=== PATIENT | male | born 1990 | race Caucasian/White ===

== ENCOUNTER 2025-02-26 18:21 | Emergency (ER) | payer OTHER, SELFPAY ==
--- NOTE | ~2025-02-26 | CT_ITS ---
EXAMINATION: CT abdomen pelvis w con DATE: 02/26/2025 19:57 INDICATION: FRONTAL pelvic pain and scrotal pain X 1 DAY. TECHNIQUE: Computed tomography (CT) of the abdomen and pelvis was performed with 100 mL Omnipaque-350 intravenous contrast. Automated exposure control and iterative reconstruction technique were employe d. The dose-length product was 385.44 mGy-cm. COMPARISON: None. FINDINGS: Lower thorax: Bibasilar scar/atelectasis. Liver: Enlarged. Biliary/Gallbladder: Gallbladder is normal. No bile duct dilation. Pancreas: No mass or duct dilation. Spleen: Normal. Adrenals:No mass. Kidneys: No suspicious mass, obstructing stone, or hydronephrosis. Subcentimeter bilateral renal hypo densities, too small to characterize but most likely represent cysts. GI tract: Small hiatal hernia. Mild distal esophageal and gastric wall edema. No small or large bowel dilation. Normal appendix. Mesentery/Peritoneum: No ascites, mass, or free air. Left inferior intra-abdominal and left inguinal region peritoneal thickening/scarring versus hernia mesh. Retroperitoneum: No mass. Pelvis: Partial obscuration from metal artifact. Partially distended urinary bladder with mild wall t hickening. Prominent bilateral seminal vesicles. Mildly enlarged, diffusely enhancing prostate. Soft Tissues: Small uncomplicated appearing fat-containing umbilical hernia. Subcutaneous thickening and stranding over the midline abdomen/suprapubic soft tissues, likely surgical incision. Bones: No acute osseous finding. Uncomplicated appearing screw and plate fixation of the pubic symph ysis and right iliac bone. Uncomplicated appearing screw fixation of the right sacrum. IMPRESSION: Hepatomegaly. Mild esophagitis/gastritis. Bladder wall thickening may be secondary to cystitis or incomplete distention. Enlarged diffusely enhancing prostate. Prominent bilateral seminal vesicles. Correlate for clinical f indings of prostatitis/seminal vesiculitis. Midline lower anterior abdominal wall and suprapubic soft tissue thickening and left anterior/inguina l peritoneal thickening, in the absence of signs of infection these findings likely represent normal postsurgical change and possible hernia mesh. Correlate with surgical history. Reviewed, dictated and finalized at location [facility]. IMPRESSION: Hepatomegaly. Mild esophagitis/gastritis. Bladder wall thickening may be secondary to cystitis or incomplete distention. Enlarged diffusely enhancing prostate. Prominent bilateral seminal vesicles. Co rrelate for clinical findings of prostatitis/seminal vesiculitis. Midline lower anterior abdominal wall and suprapubic soft tissue thickening and left anterior/inguinal peritoneal thickening, in the absence of signs of infec tion these findings likely represent normal postsurgical change and possible he rnia mesh. Correlate with surgical history.
[2025-02-26 18:22] VITALS: BP 121/74; PULSE 85; RESP 16; TEMP 36.8; O2SAT 94
--- OUTSIDE RECORDS SUMMARY | 2025-02-26 18:23 | XMS_ITS | Clinical Summary ---
Author Organization [facility] Address [facility] [place] [address] Care Team Providers Care Investment Advisor Name Role Phone Brad Squires MD Primary Care Provider [phone] Allergies No known active allergies Medications WHEELCHAIR STANDARD/MANUAL, DME,Indications: Pelvic fracture (CMS/HCC HHS/HCC),Closed left ankle fracture,Traumat ic separation of pubic symphysis,Closed fracture of distal end of right tibia, unspecified fracture morphology, initial encounter,Closed fracture of base of fifth metatarsal bone of right foot at metaphyseal-diap hyseal junction, initial encounter 1 Device by Does not apply route daily. 1 Device 4 Active Misc. Devices (TRANSFER BOARD) MiscIndications: Pelvic fracture (CMS/HCC HHS/HCC),Closed left ankle fracture,Traumat ic separation of pubic symphysis,Closed fracture of distal end of right tibia, unspecified fracture morphology, initial encounter,Closed fracture of base of fifth metatarsal bone of right foot at metaphyseal-diap hyseal junction, initial encounter 1 Units by Does not apply route daily. Slide Board 1 each 4 Active COMMODE, DME,Indications: Pelvic fracture (CMS/HCC HHS/HCC),Closed left ankle fracture,Traumat ic separation of pubic symphysis,Closed fracture of distal end of right tibia, unspecified fracture morphology, initial encounter,Closed fracture of base of fifth metatarsal bone of right foot at metaphyseal-diap hyseal junction, initial encounter 1 Device by Does not apply route as needed. 1 Device 4 Active HOSPITAL BED, DME,Indications: Pelvic fracture (CMS/HCC HHS/HCC),Traumat ic separation of pubic symphysis,Closed displaced fracture of right ilium, unspecified fracture morphology, initial encounter ([facility]) 1 Device by Does not apply route nightly at bedtime. 1 Device 4 Active oxyCODONE immediate release (ROXICODONE) 5 MG immediate release tabletIndication s:Acute Pain < 7 Day Supply Take 1 tablet (5 mg total) by mouth every 6 (six) hours as needed for Pain. Indications: Acute Pain < 7 Day Supply 20 tablet 4 Active traMADol (ULTRAM) 50 MG tabletIndication s:Acute Pain < 3 Day Supply Take 1 tablet (50 mg total) by mouth every 6 (six) hours as needed for Pain. Indications: Acute Pain < 3 Day Supply 5 tablet 4 Active gabapentin (NEURONTIN) 300 MG capsuleIndicatio ns:Neuropathic Pain Take 300 mg by mouth 3 (three) times daily. Indications: Neuropathic Pain 4 Active tiZANidine (ZANAFLEX) 4 MG tabletIndication s:Muscle Spasm Take 2 mg by mouth every 8 (eight) hours as needed (muscle spasm). Indications: Muscle Spasm 4 Active HYDROcodone-acet aminophen (NORCO) 5-325 MG tabletIndication s:Acute Pain < 7 Day Supply Take 1 tablet by mouth every 8 (eight) hours as needed for Pain. Indications: Acute Pain < 7 Day Supply 4 Active Active Problems Problem Noted Date Diagnosed Date Haemophilus influenzae pneumonia 11/29/2023 Closed fracture of right distal tibia 11/26/2023 Closed fracture of base of f ifth metatarsal bone of right foot at metaphyseal-diaphyseal junction 11/26/2023 Smoker 11/24/2023 Injury resulting from fall from height 4 Open left ankle fracture 11/20/2023 Traumatic separation of pubic symphysis 11/20/19 24 Closed displaced fracture of right ilium (CMS/ [facility]) 11/20/2023 Bladder injury 11/20/2023 Fracture of unspecified meta tarsal bone(s), left foot, initial encounter for closed fracture 11/20/2023 Resolved Problems Problem Noted Date Diagnosed Date Resolved Date HAP (hospital-acquired pneumonia) 11/26/2023 11/29/2023 Acute atelectasis 11/24/2023 11/29/2023 Hypocalcemia 11/21/2023 11/24/2023 Elevated CK 11/20/2023 11/26/2023 Bleeding from urethra in male 11/20/2023 11/20/2023 Injury of male urethra 11/20/202311/19 Social History Tobacco Use Types Packs/Day Years Used Date Smoking Tobacco: Every Day Cigarettes Tobacco Cessation:Ready to Q uit: Not Asked; Counseling Given: Not Answered OASIS D0700: Social Isolation Answer Da te Recorded Frequency of experiencing loneliness or isolatio n Sometimes 01/14/2024 OASIS A1250: Transportation Answer Date Recorded Lack of Transportation (Medical) No 01/14/2024 Lack of Transportation (Non-Medical) No 01/14/2024 Patient Unable or Declines to Respond No 01/14/2024 OASIS B1300: Health Literacy Answer Otoniel e Recorded Frequency of needing help to read materials from doctor or pharmacy Never 01/14/2024 [facility] Utilities Answer Date Recorded In the past 12 months has e Tugg, oil, or water [employer] threatened to shut off services in your home? No 11/20/2023 Humiliation, Afraid, Rape, and Kick questionnair e Answer Date Recorded Within the last year, have y ou been afraid of your partner or ex-partner? No 11/20/2023 Within the last year, have y ou been humiliated or emotionally abused in other ways by your partner or ex-partner? No Within the last year, have y ou been kicked, hit, slapped, or otherwise physically hurt by your partner or ex-partner? No 11/20/2023 Within the last year, have y ou been raped or forced to have any kind of sexual activity by your partner or ex-partner? No 11/20/2023 Overall Financial Resource Strain (CARDIA) Answe r Date Recorded How hard is it for you to pa y for the very basics like food, housing, medical care, and heating? Not hard at all 11/20/2023 Hunger Vital Sign Answer Date Recorded Within the past 12 months, y ou worried that your food would run out before you got the money to buy more. Never true 11/20/19 24 Within the past 12 months, t he food you bought just didn't last and you didn't have money to get more. Never true 11/20/2023 PRAPARE - Transportation Answer Date Re corded In the past 12 months, has l ack of transportation kept you from medical appointments or from getting medications? No 03/2024 In the past 12 months, has l ack of transportation kept you from meetings, work, or from getting things needed for daily living? No 11/20/2023 Housing Stability Vital Sign Answer Otoniel e Recorded In the last 12 months, was t here a time when you were not able to pay the mortgage or rent on time? No 11/20/2023 In the past 12 months, how m any times have you moved where you were living? 0 11/20/2023 At any time in the past [address] [facility], were you homeless or living in a half-way (including now)? 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 [employer] Gender Identity Not on file Sexual Orientation Not on file Last Filed Vital Signs Vital Sign Reading Time Taken Comments Blood Pressure 110/70 01/01/2024 3:31 PM CDT Pulse 64 01/01/2024 3:31 PM CDT Temperature 35.9 C (96.6 F) 01/01/2024 3:31 PM CDT Respiratory Rate 16 01/01/2024 3:31 PM CDT Oxygen Saturation 98% 01/01/2024 3:31 PM CDT room air Inhaled Oxygen Concentration - - Weight 76.2 kg (167 lb 15.9 oz) 11/25/2023 4:24 AM CDT Height 188 cm (6' 2) 11/20/2023 9:41 AM CDT Body Mass Index 21.57 11/20/2023 9:41 AM CDT Plan of Treatment Health Maintenance Due Date Last Done Comments Annual Physical 1992 Hepatitis C 11/15/2007 Hepatitis B Vaccines (1 of 3 - 19+ 3-dose series) 2008 Pneumococcal Vaccine: Pediatrics (0 to 5 Years) and At-Risk Patients (6 to 49 Years) (1 of 2 - PCV) 2008 HPV Vaccines (1 - 3-dose SCD M series) 2016 COVID-19 Vaccine (1 - 2023-2 5 season) 2024 DTaP, Tdap and Td Vaccines ( 3 - Td or Tdap) 01/21/2028 01/20/2018, 02/13/2004 Meningococcal B Vaccine Aged Out No l onger eligible based on patient's age to complete this topic Meningococcal Vaccine Aged Out No joanna brien eligible based on patient's age to complete this topic RSV Immunizations Under 20 Months Aged Out No longer eligible b ased on patient's age to complete this topic Goals Goal Patient Goal Type Associated Problems Recent Progress Patient-Stated? Author Safety Patient/family will have appropriate support at home upon discharge Lifestyle No Nicky Head RN Medical Devices Implanted Type Area Process Improvement Specialist Device Identifier Shelf Expiration Date Model / Serial / Lot Graft Bone Allosource Canc Crushed Fd 5ml - [id number] Implanted:Qty: 1 on 11/28/2023 by Joshua Gutierrez MD at [facility] Bone Left: Ankle [employer] 12/15/2027 [id number] / [id number] / NA Plate Pubic Symphysis 3.5mm 6 Hole - [id number] Implanted:Qty: 1 on 11/21/2023 by Joshua Gutierrez MD at [facility] Plate Right: Iliac Crest SYNTHES 02.100.006 / / Plate Synthes 3.5 Low Profile Recon 7h 91mm - [id number] Implanted:Qty: 1 on 11/21/2023 by Joshua Gutierrez MD at [facility] Plate Right: Iliac Crest SYNTHES 245.027 / / Plate Synthes 3.5 Low Profile Recon 5h 65mm - [id number] Implanted:Qty: 1 on 11/21/2023 by Joshua Gutierrez MD at [facility] Plate Right: Iliac Crest SYNTHES 245.025 / / Plate Synthes One-Third Tubular Lcp W/Collar 5 Hole - [id number] Implanted:Qty: 1 on 11/28/2023 by Joshua Gutierrez MD at [facility] Plate Left: Ankle SYNTHES 241.351 / / NA Screw Synthes 3.5 Cortex Stardrive 45mm - [id number] Implanted:Qty: 1 on 11/21/2023 by Joshua Gutierrez MD at [facility] Screw Right: Iliac Crest SYNTHES 02.200.045 / / Screw Synthes 3.5 Cortex Stardrive 55mm - [id number] Implanted:Qty: 1 on 11/21/2023 by Joshua uGtierrez MD at [facility] Screw Right: Iliac Crest SYNTHES 02.200.055 / / Screw Synthes 3.5 Cortex Stardrive 26mm - [id number] Implanted:Qty: 1 on 11/21/2023 by Joshua Gutierrez MD at [facility] Screw Right: Iliac Crest SYNTHES 02.200.026 / / Screw Synthes 3.5 Cortex Stardrive 28mm - [id number] Implanted:Qty: 1 on 11/21/2023 by Joshua Gutierrez MD at [facility] Screw Right: Iliac Crest SYNTHES 02.200.028 / / Screw Synthes 3.5 Cortex Stardrive 50mm - [id number] Implanted:Qty: 1 on 11/21/2023 by Joshua Gutierrez MD at [facility] Screw Right: Iliac Crest SYNTHES 02.200.050 / / Screw Synthes 5.0mm Cannulated Locking 60mm - [id number] Implanted:Qty: 1 on 11/21/2023 by Joshua Gutierrez MD at [facility] Screw Right: Iliac Crest SYNTHES 02.200.060 / / Screw Synthes 3.5 Cortex Stardrive 40mm - [id number] Implanted:Qty: 1 on 11/21/2023 by Joshua Gutierrez MD at [facility] Screw Right: Iliac Crest SYNTHES 02.200.040 / / Screw Synthes 3.5 Cortex Stardrive 36mm - [id number] Implanted:Qty: 1 on 11/21/2023 by Joshua Gutierrez MD at [facility] Screw Right: Iliac Crest SYNTHES 02.200.036 / / Screw Synthes 3.5 Cortex Stardrive 34mm - [id number] Implanted:Qty: 1 on 11/21/2023 by Joshua Gutierrez MD at [facility] Screw Right: Iliac Crest SYNTHES 02.200.034 / / Screw Synthes 3.5 Cortex Stardrive 85mm - [id number] Implanted:Qty: 1 on 11/21/2023 by Joshua Gutierrez MD at [facility] Screw Right: Iliac Crest SYNTHES 02.200.085 / / Screw Synthes 3.5 Cortex Stardrive 30mm - [id number] Implanted:Qty: 1 on 11/21/2023 by Joshua Gutierrez MD at [facility] Screw Right: Iliac Crest SYNTHES 02.200.030 / / Screw Synthes 3.5 Cortex Stardrive 24mm - [id number] Implanted:Qty: 1 on 11/21/2023 by Joshua Gutierrez MD at [facility] Screw Right: Iliac Crest SYNTHES 02.200.024 / / Screw Synthes 3.5 Cortex Stardrive 18mm - [id number] Implanted:Qty: 1 on 11/21/2023 by Joshua Gutierrez MD at [facility] Screw Right: Iliac Crest SYNTHES 02.200.018 / / Screw Synthes 3.5 Cortex Stardrive 16mm - [id number] Implanted:Qty: 2 on 11/21/2023 by Joshua Gutierrez MD at [facility] Screw Right: Iliac Crest SYNTHES 02.200.016 / / Screw Synthes 6.5 Kacie Self Tap 16mm Pt 85 - [id number] Implanted:Qty: 1 on 11/21/2023 by Joshua Gutierrez MD at [facility] Screw Right: Iliac Crest SYNTHES 208.412 / / Screw Schanz Synthes 6.0 X 190 - [id number] Implanted:Qty: 1 on 11/21/2023 by Joshua Gutierrez MD at [facility] Screw Right: Iliac Crest SYNTHES 294.68 / / Screw Synthes 3.5 Cortex S/Tap 16mm - [id number] Implanted:Qty: 1 on 11/28/2023 by Joshua Gutierrez MD at [facility] Screw Left: Ankle SYNTHES 204.816 / / NA Screw Synthes 3.5 Cortex S/Tap 18mm - [id number] Implanted:Qty: 1 on 11/28/2023 by Joshua Gutierrez MD at [facility] Screw Left: Ankle SYNTHES 204.818 / / NA Screw Synthes 2.7 Cortical Self Tapping 55 - [id number] Implanted:Qty: 1 on 11/28/2023 by Joshua Gutierrez MD at [facility] Screw Left: Ankle SYNTHES 202.855 / / NA Screw Synthes 3.5 Locking Stardrive 16mm - [id number] Implanted:Qty: 1 on 11/28/2023 by Joshua Gutierrez MD at [facility] Screw Left: Ankle SYNTHES 212.104 / / NA Screw Synthes 3.5 Locking Stardrive 18mm - [id number] Implanted:Qty: 1 on 11/28/2023 by Joshua Gutierrez MD at [facility] Screw Left: Ankle SYNTHES 212.105 / / NA Screw Synthes 3.5 Cortex S/Tap 36mm - [id number] Implanted:Qty: 1 on 11/28/2023 by Joshua Gutierrez MD at [facility] Screw Left: Ankle SYNTHES 204.836 / / NA Screw Synthes 2.7 Cortical Self Tapping 45 - [id number] Implanted:Qty: 1 on 11/28/2023 by Joshua Gutierrez MD at [facility] Screw Left: Ankle SYNTHES 202.845 / / NA Screw Synthes 3.5 Cortex S/Tap 30mm - [id number] Implanted:Qty: 1 on 11/28/2023 by Joshua Gutierrez MD at [facility] Screw Left: Ankle SYNTHES 204.830 / / NA Screw Synthes 2.7 Cortical Self Tapping 45 - [id number] Implanted:Qty: 1 on 11/28/2023 by Joshua Gutierrez MD at [facility] Screw Left: Ankle SYNTHES 202.845 / / NA Washer Synthes 13.0mm - [id number] Implanted:Qty: 1 on 11/21/2023 by Joshua Gutierrez MD at [facility] Washer Right: Iliac Crest SYNTHES 219.99 / / 7 Hole 1/3 Tubular Plate Implanted:Qty: 1 on 11/28/2023 by Joshua Gutierrez MD at [facility] Left: Ankle SYNTHES 241.371 / / NA Explanted Type Area Process Improvement Specialist Device Identifier Shelf Expiration Date Model / Serial / Lot Drill Bit Synthes 5.0 Qc 300mm - [id number] Explanted:Qty: 1 on 11/21/2023 by Joshua Gutierrez MD at [facility] Drill Right: Iliac Crest SYNTHES 310.63 / / Drill Bit Synthes 2.5 Three-Fluted Qc 230 X 200mm - [id number] Explanted:Qty: 1 on 11/21/2023 by Joshua Gutierrez MD at [facility] Drill Right: Iliac Crest SYNTHES 315.92 / / Drill Bit Perc. Calib Synthes - [id number] Explanted:Qty: 1 on 11/21/2023 by Joshua Gutierrez MD at [facility] Drill Right: Iliac Crest SYNTHES 324.210 / / Drill Bit Synthes 2.5 Qc 110mm Gold - [id number] Explanted:Qty: 1 on 11/28/2023 by Joshua Gutierrez MD at [facility] Drill Left: Ankle [employer] 310.25 / / NA Drill Bit Synthes 2.0 Qc 125mm - [id number] Explanted:Qty: 1 on 11/28/2023 by Joshua Gutierrez MD at [facility] Drill Left: Ankle [employer] 310.21 / / NA Drill Bit Synthes 2.8 Qc 165mm - [id number] Explanted:Qty: 1 on 11/28/2023 by Joshua Gutierrez MD at [facility] Drill Left: Ankle SYNTHES 310.288 / / NA Drill Bit Synthes 2.7mm Three Fluted - [id number] Explanted:Qty: 1 on 11/28/2023 by Joshua Gutierrez MD at [facility] Drill Left: Ankle SYNTHES 315.28 / / NA Drill Bit Synthes 3.5 Qc 110mm - [id number] Explanted:Qty: 1 on 11/28/2023 by Joshua Gutierrez MD at [facility] Drill Left: Ankle SYNTHES 310.35 / / NA Screw Synthes 6.5 Kacie Self Tap 32mm Pt 150 - [id number] Explanted:Qty: 1 on 11/21/2023 by Joshua Gutierrez MD at [facility] Screw Right: Iliac Crest SYNTHES 208.452 / / Screw Synthes 6.5 Kacie Self Tap 32mm Pt 145 - [id number] Explanted:Qty: 1 on 11/21/2023 by Joshua Gutierrez MD at [facility] Screw Right: Iliac Crest SYNTHES 208.451 / / Screw Synthes 3.5 Cortex S/Tap 18mm - [id number] Explanted:Qty: 1 on 11/28/2023 by Joshua Gutierrez MD at [facility] Screw Left: Ankle SYNTHES 204.818 / / NA Description:WRONG SIZE Washer Synthes 13.0mm - [id number] Explanted:Qty: 1 on 11/21/2023 by Joshua Gutierrez MD at [facility] Washer Right: Iliac Crest SYNTHES 219.99 / / 4.5mm Cannulated Drill Bit/González 233mm-Sterile Explanted:Qty: 1 on 11/21/2023 by Joshua Gutierrez MD at [facility] Right: Iliac Crest DEPUY SYNTHES 10/11/2032 310.69S / / [id number] 4.5mm Cannulated Drill [id number] Explanted:Qty: 1 on 11/21/2023 by Joshua Gutierrez MD at [facility] Right: Iliac Crest DEPUY SYNTHES 310.69 / / 1.6mm K-Wire Explanted:Qty: 1 on 11/21/2023 by Joshua Gutierrez MD at [facility] Right: Iliac Crest DEPUY SYNTHES 292.61 / / 6.5 X 130 Full Thread Explanted:Qty: 1 on 11/21/2023 by Joshua Gutierrez MD at [facility] Right: Iliac Crest DEPUY SYNTHES 208.482 / / Insurance [facility] [employer] [facility] Advance Directives * Full Code (Latest Code Status on File) Date Activated Date Inactivated Comments 12/19/2023 6:46 PM * Full Code Date Activated Date Inactivated Comments 11/20/2023 11:14 AM 12/03/2023 8:32 PM Care Teams Investment Advisor Relationship Specialty Start Date End Date Brad Squires MD [address] [place] [address] PCP - General FAMILY PRACTICE 11/20/23
--- OUTSIDE RECORDS SUMMARY | 2025-02-26 18:23 | XMS_ITS | Encounter Summary ---
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
--- NOTE | 2025-02-26 18:32 | ED_ITS ---
HPI - General Adult General Chief complaint: Unspecified <Gui Shabazz DO - Last Filed: 02/27/25 11:58> Stated complaint: pelvic pain <Gui Shabazz DO - Last Filed: 02/27/25 11:58> Time Seen by Provider: 02/26/25 18:26 <Gui Shabazz DO - Last Filed: 02/27/25 11:58> History of Present Illness HPI narrative: Leonardo is a 34M with a PMH of a fractured pelvis with bladder rupture a year ago that presented to the ED with pelvic and scrotal pain. It started when he leaned over to pick something up no he has suprapubic pain and scotal pain. Last BM yesterday. No hematuria or dysuria. <Gui Shabazz DO - Last Filed: 02/27/25 11:58> Related Data Home medications: Home Medications ?Medication ?Instructions ?Recorded ?Confirmed ?Last Taken ?Type fluoxetine 20 mg capsule 20 mg PO QPM 02/26/25 Unknown History <Gui Shabazz DO - Last Filed: 02/27/25 11:58> Allergies/adverse reactions: Allergies Allergy/AdvReac Type Severity Reaction Status Date / Time No Known Allergies Allergy Verified 02/26/25 18:29 <Gui Shabazz DO - Last Filed: 02/27/25 11:58> Review of Systems 2 Review of Systems: All systems reviewed & are unremarkable except as noted in HPI and below <Gui Shabazz DO - Last Filed: 02/27/25 11:58> Exam 2 Const: General: cooperative, healthy appearing, comfortable, no acute distress, well developed, alert, awake and Physically active <Gui Shabazz DO - Last Filed: 02/27/25 11:58> Orientation/consciousness: oriented to person, oriented to place and oriented to time <Gui Shabazz DO - Last Filed: 02/27/25 11:58> HENMT: Head: normal to inspection, normocephalic and atraumatic <Gui Shabazz DO - Last Filed: 02/27/25 11:58> Ears: hearing grossly normal bilaterally and external ears normal <Gui Shabazz DO - Last Filed: 02/27/25 11:58> Face/Nose/Sinus: Normal external nose present <Gui TavonShankar Erivíctor DO - Last Filed: 02/27/25 11:58> Eyes: General: appearance normal, both eyes and all related structures < Gui TavonShankar Erivíctor DO - Last Filed: 02/27/25 11:58> Periorbital: periorbital findings normal <Gui TavonShankar Erivíctor DO - Last Filed: 02/27/25 11:58> Sclera: sclerae normal <Gui TavonShankar Erirosanneекатерина DO - Last Filed: 02/27/25 11:58> Pupils: Equal, round and reactive pupils present <Gui TavonShankar Erivíctor DO - Last Filed: 02/27/25 11:58> Neck: Neck: normal visual inspection <Gui TavonShankar Erivíctor DO - Last Filed: 02/27/25 11:58> Chest: Chest palpation & inspection: normal inspection of the chest <Gui Shabazz DO - Last Filed: 02/27/25 11:58> Resp: Effort & Inspection: normal respiratory effort, able to speak in complete sentences and no respiratory distress <Gui Alejandro Erivíctor, DO - Last Filed: 02/27/25 11:58> Cardio: Jugular venous distension: no JVD <Guideion Alejandro Erivíctor DO - Last Filed: 02/27/25 11:58> GI: Inspection: normal to inspection <Gui Shabazz DO - Last Filed: 02/27/25 11:58> GI Palp: Yes Soft to palpation <Gui Shabazz DO - Last Filed: 02/27/25 11:58> Auscultation: normal bowel sounds <Gui Shabazz DO - Last Filed: 02/27/25 11:58> : Other: suprapubic area TTP, epididymitis is very TTP. No umbilical hernia on scotal exam <Gui Shabazz DO - Last Filed: 02/27/25 11:58> Skin: General skin exam: normal color and no rashes or lesions noted <Gui Shabazz DO - Last Filed: 02/27/25 11:58> Neuro: General: oriented to person, oriented to place and oriented to time <Gui Shabazz DO - Last Filed: 02/27/25 11:58> Cranial nerves: Yes Equal, round and reactive pupils present <Gui Shabazz DO - Last Filed: 02/27/25 11:58> Extrem: General: normal to inspection <Gui Shabazz DO - Last Filed: 02/27/25 11:58> Course Course Emergency Course: Ordered CT, labs and UA, He declined pain meds. <Gui Shabazz DO - Last Filed: 02/27/25 11:58> Vital Signs Vital signs: Vital Signs Temperature 98.2 F 02/26/25 18:22 Pulse Rate 85 02/26/25 18:22 Respiratory Rate 16 02/26/25 18:22 Blood Pressure 121/74 02/26/25 18:22 Pulse Oximetry 94 02/26/25 18:22 Oxygen Delivery Room Air 02/26/25 18:22 Temperature 98.4 F 02/26/25 21:31 Pulse Rate 83 02/26/25 21:31 Respiratory Rate 16 02/26/25 21:31 Blood Pressure 120/72 02/26/25 21:31 Pulse Oximetry 96 02/26/25 21:31 Oxygen Delivery Room Air 02/26/25 21:31 <Gui Shabazz DO - Last Filed: 02/27/25 11:58> Vital Signs Temperature 98.2 F 02/26/25 18:22 Pulse Rate 85 02/26/25 18:22 Respiratory Rate 16 02/26/25 18:22 Blood Pressure 121/74 02/26/25 18:22 Pulse Oximetry 94 02/26/25 18:22 Oxygen Delivery Room Air 02/26/25 18:22 Temperature 98.4 F 02/26/25 21:31 Pulse Rate 83 02/26/25 21:31 Respiratory Rate 16 02/26/25 21:31 Blood Pressure 120/72 02/26/25 21:31 Pulse Oximetry 96 02/26/25 21:31 Oxygen Delivery Room Air 02/26/25 21:31 <Chris Haro MD - Last Filed: 02/26/25 20:56> Medical Decision Making MDM Narrative Medical decision making narrative: patient is a 34-year-old male with prior pelvic fracture and repair here with leaning over and having pain in his testicles and lower abdomen/ pelvis region today. Labs and CT scan. Urine. <Chris Haro MD - Last Filed: 02/26/25 20:56> Vital Signs Vital Signs: Vital Signs Temperature 98.2 F 02/26/25 18:22 Pulse Rate 85 02/26/25 18:22 Respiratory Rate 16 02/26/25 18:22 Blood Pressure 121/74 02/26/25 18:22 Pulse Oximetry 94 02/26/25 18:22 Oxygen Delivery Room Air 02/26/25 18:22 Temperature 98.4 F 02/26/25 21:31 Pulse Rate 83 02/26/25 21:31 Respiratory Rate 16 02/26/25 21:31 Blood Pressure 120/72 02/26/25 21:31 Pulse Oximetry 96 02/26/25 21:31 Oxygen Delivery Room Air 02/26/25 21:31 <Gui Shabazz DO - Last Filed: 02/27/25 11:58> Vital Signs Temperature 98.2 F 02/26/25 18:22 Pulse Rate 85 02/26/25 18:22 Respiratory Rate 16 02/26/25 18:22 Blood Pressure 121/74 02/26/25 18:22 Pulse Oximetry 94 02/26/25 18:22 Oxygen Delivery Room Air 02/26/25 18:22 Temperature 98.4 F 02/26/25 21:31 Pulse Rate 83 02/26/25 21:31 Respiratory Rate 16 02/26/25 21:31 Blood Pressure 120/72 02/26/25 21:31 Pulse Oximetry 96 02/26/25 21:31 Oxygen Delivery Room Air 02/26/25 21:31 <Chris Haro MD - Last Filed: 02/26/25 20:56> Lab Data Lab results reviewed: Yes I reviewed the patient's lab results. <Chris Haro MD - Last Filed: 02/26/25 20:56> Result diagrams: 02/26/25 18:45 02/26/25 18:45 <Gui Shabazz DO - Last Filed: 02/27/25 11:58> Labs: Lab Results 02/26/25 Range/Units 18:45 WBC 9.6 (4.8-10.8) K/mm3 RBC 4.81 (4.70-6.10) M/mm3 Hgb 14.1 (14.0-18.0) g/dL Hct 43.5 (40.0-54.0) % MCV 90.4 (78.0-102.0) fL MCH 29.3 (27.0-31.0) pg MCHC 32.4 (32-36) g/dL RDW 13.5 (11.6-14.4) % Plt Count 256 (150-420) K/mm3 MPV 9.9 (8.7-11.0) fl Immature Gran % (Auto) 0.3 H (0.0-0.0) % Neut % (Auto) 63.2 (50.0-70.0) % Lymph % (Auto) 27.8 (18.0-42.0) % Baca % (Auto) 5.4 (2.0-11.0) % Eos % (Auto) 2.8 (1.0-6.0) % Baso % (Auto) 0.5 (0.0-1.0) % Lymph # (Auto) 2.66 (1.10-4.50) K/mm3 Baca # (Auto) 0.52 (0.10-0.90) K/mm3 Eos # (Auto) 0.27 (0.02-0.50) K/mm3 Baso # (Auto) 0.05 (0.00-0.10) K/mm3 Abs Immat Gran (auto) 0.03 H (0.00-0.00) K/mm3 Absolute Neuts (auto) 6.04 (1.70-7.20) K/mm3 Absolute Nucleated RBC 0.00 (0.00-0.00) K/mm3 Nucleated RBC % 0.0 (0-0.0) % Sodium 140 (137-145) mmol/L Potassium 4.0 (3.4-5.0) mmol/L Chloride 107 (98-107) mmol/L Carbon Dioxide 29 (22-30) mmol/L Anion Gap 4 (4-12) mmol/L BUN 13 (9-20) mg/dL Creatinine 0.79 (0.7-1.3) mg/dL Estim Creat Clear Calc 130 ml/min Estimated GFR > 60 (59 - ) Glucose 87 (65-110) mg/dL Calculated Osmolality 289 (285-295) mOsm/kg Calcium 9.3 (8.4-10.2) mg/dL Total Bilirubin 0.7 (0.2-1.3) mg/dL AST 25 (17-59) U/L ALT 16 (6-50) U/L Alkaline Phosphatase 87 (38-126) U/L C-Reactive Protein 0.7 (<1.0) mg/dL Total Protein 7.1 (6.3-8.2) g/dL Albumin 4.4 (3.5-5.1) g/dL Lipase 28 (23-300) U/L Urine Color Light yellow (Yellow) Urine Appearance Clear (Clear) Urine pH 7.0 (5.0-8.0) Ur Specific Ramah 1.015 (1.010-1.020) Urine Protein Negative (Negative) Urine Glucose (UA) Negative (Negative) Urine Ketones Negative (Negative) Ur Blood (Man) Trace-intact H (Negative) Urine Nitrate Negative (Negative) Urine Bilirubin Negative (Negative) Urine Urobilinogen 0.2 (0.2-1.0) mg/dL Leukocyte Esterase Rfl Negative (Negative) MICHELE/UL <Gui Shabazz, DO - Last Filed: 02/27/25 11:58> Lab Results 02/26/25 Range/Units 18:45 WBC 9.6 (4.8-10.8) K/mm3 RBC 4.81 (4.70-6.10) M/mm3 Hgb 14.1 (14.0-18.0) g/dL Hct 43.5 (40.0-54.0) % MCV 90.4 (78.0-102.0) fL MCH 29.3 (27.0-31.0) pg MCHC 32.4 (32-36) g/dL RDW 13.5 (11.6-14.4) % Plt Count 256 (150-420) K/mm3 MPV 9.9 (8.7-11.0) fl Immature Gran % (Auto) 0.3 H (0.0-0.0) % Neut % (Auto) 63.2 (50.0-70.0) % Lymph % (Auto) 27.8 (18.0-42.0) % Baca % (Auto) 5.4 (2.0-11.0) % Eos % (Auto) 2.8 (1.0-6.0) % Baso % (Auto) 0.5 (0.0-1.0) % Lymph # (Auto) 2.66 (1.10-4.50) K/mm3 Baca # (Auto) 0.52 (0.10-0.90) K/mm3 Eos # (Auto) 0.27 (0.02-0.50) K/mm3 Baso # (Auto) 0.05 (0.00-0.10) K/mm3 Abs Immat Gran (auto) 0.03 H (0.00-0.00) K/mm3 Absolute Neuts (auto) 6.04 (1.70-7.20) K/mm3 Absolute Nucleated RBC 0.00 (0.00-0.00) K/mm3 Nucleated RBC % 0.0 (0-0.0) % Sodium 140 (137-145) mmol/L Potassium 4.0 (3.4-5.0) mmol/L Chloride 107 (98-107) mmol/L Carbon Dioxide 29 (22-30) mmol/L Anion Gap 4 (4-12) mmol/L BUN 13 (9-20) mg/dL Creatinine 0.79 (0.7-1.3) mg/dL Estim Creat Clear Calc 130 ml/min Estimated GFR > 60 (59 - ) Glucose 87 (65-110) mg/dL Calculated Osmolality 289 (285-295) mOsm/kg Calcium 9.3 (8.4-10.2) mg/dL Total Bilirubin 0.7 (0.2-1.3) mg/dL AST 25 (17-59) U/L ALT 16 (6-50) U/L Alkaline Phosphatase 87 (38-126) U/L C-Reactive Protein 0.7 (<1.0) mg/dL Total Protein 7.1 (6.3-8.2) g/dL Albumin 4.4 (3.5-5.1) g/dL Lipase 28 (23-300) U/L Urine Color Light yellow (Yellow) Urine Appearance Clear (Clear) Urine pH 7.0 (5.0-8.0) Ur Specific Ramah 1.015 (1.010-1.020) Urine Protein Negative (Negative) Urine Glucose (UA) Negative (Negative) Urine Ketones Negative (Negative) Ur Blood (Man) Trace-intact H (Negative) Urine Nitrate Negative (Negative) Urine Bilirubin Negative (Negative) Urine Urobilinogen 0.2 (0.2-1.0) mg/dL Leukocyte Esterase Rfl Negative (Negative) MICHELE/UL <Chris Haro MD - Last Filed: 02/26/25 20:56> Imaging Data Attestation: I personally reviewed and interpreted this imaging study as follows: <Chris Haro MD - Last Filed: 02/26/25 20:56> Radiologist's impression: CT scan of the abdomen and pelvis with contrast shows IMPRESSION: Hepatomegaly. Mild esophagitis/gastritis. Bladder wall thickening may be secondary to cystitis or incomplete distention. Enlarged diffusely enhancing prostate. Prominent bilateral seminal vesicles. Correlate for clinical findings of prostatitis/seminal vesiculitis. Midline lower anterior abdominal wall and suprapubic soft tissue thickening and left anterior/inguinal peritoneal thickening, in the absence of signs of infection these findings likely represent normal postsurgical change and possible hernia mesh. Correlate with surgical history. <Chris Haro MD - Last Filed: 02/26/25 20:56> Discharge Plan Discharge Clinical Impression: Acute prostatitis, Seminal vesiculitis <Gui Shabazz DO - Last Filed: 02/27/25 11:58> Patient Disposition: Home <Gui Shabazz DO - Last Filed: 02/27/25 11:58> Condition: Stable <DO Dax Browning Last Filed: 02/27/25 11:58> Instructions: Antibiotic Form, Epididymitis (ED), Prostatitis (ED) <DO Dax Browning Last Filed: 02/27/25 11:58> Additional Instructions: Please follow-up with the primary doctor in the next week. Please follow-up with a urologist in the next 1-2 weeks. <DO Dax Browning Last Filed: 02/27/25 11:58> Patient Language: Kazakh <Gui Shabazz DO - Last Filed: 02/27/25 11:58> Prescriptions: New levofloxacin 500 mg tablet 500 mg PO DAILY 10 Days Qty: 10 0RF No Action fluoxetine 20 mg capsule 20 mg PO QPM <Gui Shabazz DO - Last Filed: 02/27/25 11:58> Follow-up/Referrals: UNKNOWN,DOCTOR [Non-Staff] - <Gui Shabazz DO - Last Filed: 02/27/25 11:58> Time of Disposition: 20:53 <Gui Shabazz DO - Last Filed: 02/27/25 11:58> 20:53 <Chris Haro MD - Last Filed: 02/26/25 20:56>
[2025-02-26 18:49] LABS: Hematocrit 43.5 % (40.0-54.0); Hemoglobin 14.1 g/dL (14.0-18.0); Immature Granulocyte Percent A 0.3 % (0.0-0.0); Lymphocytes Absolute Auto 2.66 K/mm3 (1.10-4.50); Mean Corpuscular HGB Conc 32.4 g/dL (32-36); Mean Corpuscular Hemoglobin 29.3 pg (27.0-31.0); Mean Corpuscular Volume 90.4 fL (78.0-102.0); Nucleated Red Blood Cells Absolute Auto 0.00 K/mm3 (0.00-0.00); Nucleated Red Blood Cells Perc 0.0 % (0-0.0); Platelet Count Result 256 K/mm3 (150-420); Red Blood Count 4.81 M/mm3 (4.70-6.10); White Blood Count 9.6 K/mm3 (4.8-10.8)
[2025-02-26 19:01] LABS: Add Urine Microscopic? NO; Appearance Urine Clear (Clear); Glucose Urine UA Negative (Negative); Leukocyte Esterase Ur Negative LEU/UL (Negative); Nitrate Urine Negative (Negative); Specific Grav Ur 1.015 (1.010-1.020)
[2025-02-26 19:04] LABS: Alanine Aminotransferase 16 U/L (6-50); Albumin Level 4.4 g/dL (3.5-5.1); Alkaline Phosphatase 87 U/L (38-126); Anion Gap 4 mmol/L (4-12); Aspartate Amino Transferase 25 U/L (17-59); Bilirubin,Total 0.7 mg/dL (0.2-1.3); Blood Urea Nitrogen 13 mg/dL (9-20); CRP 0.7 mg/dL (<1.0); Calcium 9.3 mg/dL (8.4-10.2); Carbon Dioxide 29 mmol/L (22-30); Chloride 107 mmol/L (98-107); Estimated CRCL calculation 130 ml/min; Estimated Glomerular Filt Rate > 60; Glucose 87 mg/dL (65-110); Lipase 28 U/L (23-300); Osmolality Calculated 289 mOsm/kg (285-295); Potassium 4.0 mmol/L (3.4-5.0); Sodium 140 mmol/L (137-145); Total Protein 7.1 g/dL (6.3-8.2)
--- OUTSIDE RECORDS SUMMARY | 2025-02-26 19:12 | XMS_ITS | Clinical Summary ---
Author Organization [facility] Address [facility] [place] [address] Care Team Providers Care Wellness Consultant Name Role Phone Brad Squires MD Primary Care Provider Allergies No known active allergies Medications WHEELCHAIR [...] right ilium, unspecified fracture morphology, initial encounter ([facility]) 1 Device by Does not apply route [...] displaced fracture of right ilium (CMS/ C [facility]) 11/20/2023 Bladder injury 11/20/2023 Fracture of unspecified [...] materials from doctor or pharmacy Never 01/14/2024 [facility] Utilities Answer Date Recorded In the past 12 months has e Ploon[employer], oil, or water [employer]forcer [employer] threatened to shut off services in your [...] any time in the past 12 m [facility], were you homeless or living in a [place] health care facility (including now)? No 11/20/2023 Sex and Gender Information Value Date Recorded Sex Assigned at Male 09/07/2024 9:10 AM [employer] Legal Sex Male 10:03 PM [employer] Gender Identity Not on file Sexual Orientation [...] Head RN Medical Devices Implanted Type Area Bargeman Device Identifier Shelf Expiration Date Model / Serial / Lot Graft Bone Allosource Canc Crushed Fd 5ml - [id number] Implanted:Qty: 1 on 11/28/2023 by Joshua Gutierrez MD at [facility] Bone Left: Ankle [employer]OURCE 12/15/2027 [id number] / [id number] / NA Plate Pubic Symphysis 3.5mm 6 Hole - [id number] Implanted:Qty: 1 on 11/21/2023 by Joshua Gutierrez MD at [facility] Plate Right: Iliac Crest SYNTHES 02.100.006 / / Plate Synthes 3.5 Low Profile Recon 7h 91mm - [id number] Implanted:Qty: 1 on 11/21/2023 by Joshua Gutierrez MD at [facility] Plate Right: Iliac Crest SYNTHES 245.027 / / Plate Synthes 3.5 Low Profile Recon 5h 65mm - [id number] Implanted:Qty: 1 on 11/21/2023 by Joshua Gutierrez MD at [facility] Plate Right: Iliac Crest SYNTHES 245.025 / / Plate Synthes One-Third Tubular Lcp W/Collar 5 Hole - [id number] Implanted:Qty: 1 on 11/28/2023 by Joshua Gutierrez MD at [facility] Plate Left: Ankle SYNTHES 241.351 / / NA Screw Synthes 3.5 Cortex Stardrive 45mm - [id number] Implanted:Qty: 1 on 11/21/2023 by Joshua Gutierrez MD at [facility] Screw Right: Iliac Crest SYNTHES 02.200.045 / / Screw Synthes 3.5 Cortex Stardrive 55mm - [id number] Implanted:Qty: 1 on 11/21/2023 by Joshua Gutierrez MD at [facility] Screw Right: Iliac Crest SYNTHES 02.200.055 / / Screw Synthes 3.5 Cortex Stardrive 26mm - [id number] Implanted:Qty: 1 on 11/21/2023 by Joshua Gutierrez MD at [facility] Screw Right: Iliac Crest SYNTHES 02.200.026 / / Screw Synthes 3.5 Cortex Stardrive 28mm - [id number] Implanted:Qty: 1 on 11/21/2023 by Joshua Gutierrez MD at [facility] Screw Right: Iliac Crest SYNTHES 02.200.028 / / Screw Synthes 3.5 Cortex Stardrive 50mm - [id number] Implanted:Qty: 1 on 11/21/2023 by Joshua Gutierrez MD at [facility] Screw Right: Iliac Crest SYNTHES 02.200.050 / / Screw Synthes 5.0mm Cannulated Locking 60mm - [id number] Implanted:Qty: 1 on 11/21/2023 by Joshua Gutierrez MD at [facility] Screw Right: Iliac Crest SYNTHES 02.200.060 / / Screw Synthes 3.5 Cortex Stardrive 40mm - [id number] Implanted:Qty: 1 on 11/21/2023 by Joshua Gutierrez MD at [facility] Screw Right: Iliac Crest SYNTHES 02.200.040 / / Screw Synthes 3.5 Cortex Stardrive 36mm - [id number] Implanted:Qty: 1 on 11/21/2023 by Joshua Gutierrez MD at [facility] Screw Right: Iliac Crest SYNTHES 02.200.036 / / Screw Synthes 3.5 Cortex Stardrive 34mm - [id number] Implanted:Qty: 1 on 11/21/2023 by Joshua Gutierrez MD at [facility] Screw Right: Iliac Crest SYNTHES 02.200.034 / / Screw Synthes 3.5 Cortex Stardrive 85mm - [id number] Implanted:Qty: 1 on 11/21/2023 by Joshua Gutierrez MD at [facility] Screw Right: Iliac Crest SYNTHES 02.200.085 / / Screw Synthes 3.5 Cortex Stardrive 30mm - [id number] Implanted:Qty: 1 on 11/21/2023 by Joshua Gutierrez MD at [facility] Screw Right: Iliac Crest SYNTHES 02.200.030 / / Screw Synthes 3.5 Cortex Stardrive 24mm - [id number] Implanted:Qty: 1 on 11/21/2023 by Joshua Gutierrez MD at [facility] Screw Right: Iliac Crest SYNTHES 02.200.024 / / Screw Synthes 3.5 Cortex Stardrive 18mm - [id number] Implanted:Qty: 1 on 11/21/2023 by Joshua Gutierrez MD at [facility] Screw Right: Iliac Crest SYNTHES 02.200.018 / / Screw Synthes 3.5 Cortex Stardrive 16mm - [id number] Implanted:Qty: 2 on 11/21/2023 by Joshua Gutierrez MD at [facility] Screw Right: Iliac Crest SYNTHES 02.200.016 / / Screw Synthes 6.5 Kacie Self Tap 16mm Pt 85 - [id number] Implanted:Qty: 1 on 11/21/2023 by Joshua Gutierrez MD at [facility] Screw Right: Iliac Crest SYNTHES 208.412 / / Screw Schanz Synthes 6.0 X 190 - [id number] Implanted:Qty: 1 on 11/21/2023 by Joshua Gutierrez MD at [facility] Screw Right: Iliac Crest SYNTHES 294.68 / / Screw Synthes 3.5 Cortex S/Tap 16mm - [id number] Implanted:Qty: 1 on 11/28/2023 by Joshua Gutierrez MD at [facility] Screw Left: Ankle SYNTHES 204.816 / / NA Screw Synthes 3.5 Cortex S/Tap 18mm - [id number] Implanted:Qty: 1 on 11/28/2023 by Joshua Gutierrez MD at [facility] Screw Left: Ankle SYNTHES 204.818 / / NA Screw Synthes 2.7 Cortical Self Tapping 55 - [id number] Implanted:Qty: 1 on 11/28/2023 by Joshua Gutierrez MD at [facility] Screw Left: Ankle SYNTHES 202.855 / / NA Screw Synthes 3.5 Locking Stardrive 16mm - [id number] Implanted:Qty: 1 on 11/28/2023 by Joshua Gutierrez MD at [facility] Screw Left: Ankle SYNTHES 212.104 / / NA Screw Synthes 3.5 Locking Stardrive 18mm - [id number] Implanted:Qty: 1 on 11/28/2023 by Joshua Gutierrez MD at [facility] Screw Left: Ankle SYNTHES 212.105 / / NA Screw Synthes 3.5 Cortex S/Tap 36mm - [id number] Implanted:Qty: 1 on 11/28/2023 by Joshua Gutierrez MD at [facility] Screw Left: Ankle SYNTHES 204.836 / / NA Screw Synthes 2.7 Cortical Self Tapping 45 - [id number] Implanted:Qty: 1 on 11/28/2023 by Joshua Gutierrez MD at [facility] Screw Left: Ankle SYNTHES 202.845 / / NA Screw Synthes 3.5 Cortex S/Tap 30mm - [id number] Implanted:Qty: 1 on 11/28/2023 by Joshua Gutierrez MD at [facility] Screw Left: Ankle SYNTHES 204.830 / / NA Screw Synthes 2.7 Cortical Self Tapping 45 - [id number] Implanted:Qty: 1 on 11/28/2023 by Joshua Gutierrez MD at [facility] Screw Left: Ankle SYNTHES 202.845 / / NA Washer Synthes 13.0mm - [id number] Implanted:Qty: 1 on 11/21/2023 by Joshua Gutierrez MD at [facility] Washer Right: Iliac Crest SYNTHES 219.99 / / 7 Hole 1/3 Tubular Plate Implanted:Qty: 1 on 11/28/2023 by Joshua Gutierrez MD at [facility] Left: Ankle SYNTHES 241.371 / / NA Explanted Type Area Bargeman Device Identifier Shelf Expiration Date Model / Serial / Lot Drill Bit Synthes 5.0 Qc 300mm - [id number] Explanted:Qty: 1 on 11/21/2023 by Joshua Gutierrez MD at [facility] Drill Right: Iliac Crest SYNTHES 310.63 / / Drill Bit Synthes 2.5 Three-Fluted Qc 230 X 200mm - [id number] Explanted:Qty: 1 on 11/21/2023 by Joshua Gutierrez MD at [facility] Drill Right: Iliac Crest SYNTHES 315.92 / / Drill Bit Perc. Calib Synthes - [id number] Explanted:Qty: 1 on 11/21/2023 by Joshua Gutierrez MD at [facility] Drill Right: Iliac Crest SYNTHES 324.210 / / Drill Bit Synthes 2.5 Qc 110mm Gold - [id number] Explanted:Qty: 1 on 11/28/2023 by Joshua Gutierrez MD at [facility] Drill Left: Ankle [employer] 310.25 / / NA Drill Bit Synthes 2.0 Qc 125mm - [id number] Explanted:Qty: 1 on 11/28/2023 by Joshua Gutierrez MD at [facility] Drill Left: Ankle [employer] 310.21 / / NA Drill Bit Synthes 2.8 Qc 165mm - [id number] Explanted:Qty: 1 on 11/28/2023 by Joshua Gutierrez MD at [facility] Drill Left: Ankle SYNTHES 310.288 / / NA Drill Bit Synthes 2.7mm Three Fluted - [id number] Explanted:Qty: 1 on 11/28/2023 by Joshua Gutierrez MD at [facility] Drill Left: Ankle SYNTHES 315.28 / / NA Drill Bit Synthes 3.5 Qc 110mm - [id number] Explanted:Qty: 1 on 11/28/2023 by Joshua Gutierrez MD at [facility] Drill Left: Ankle SYNTHES 310.35 / / NA Screw Synthes 6.5 Kacie Self Tap 32mm Pt 150 - [id number] Explanted:Qty: 1 on 11/21/2023 by Joshua Gutierrez MD at [facility] Screw Right: Iliac Crest SYNTHES 208.452 / / Screw Synthes 6.5 Kacie Self Tap 32mm Pt 145 - [id number] Explanted:Qty: 1 on 11/21/2023 by Joshua Gutierrez MD at [facility] Screw Right: Iliac Crest SYNTHES 208.451 / / Screw Synthes 3.5 Cortex S/Tap 18mm - [id number] Explanted:Qty: 1 on 11/28/2023 by Joshua Gutierrez MD at [facility] Screw Left: Ankle SYNTHES 204.818 / / NA Description:WRONG SIZE Washer Synthes 13.0mm - [id number] Explanted:Qty: 1 on 11/21/2023 by Joshua Gutierrez MD at [facility] Washer Right: Iliac Crest SYNTHES 219.99 / / 4.5mm Cannulated Drill Bit/González 233mm-Sterile Explanted:Qty: 1 on 11/21/2023 by Joshua Gutierrez MD at [facility] Right: Iliac Crest DEPUY SYNTHES 10/11/2032 310.69S / / [id number] 4.5mm Cannulated Drill [id number] Explanted:Qty: 1 on 11/21/2023 by Joshua Gutierrez MD at [facility] Right: Iliac Crest DEPUY SYNTHES 310.69 / / 1.6mm K-Wire Explanted:Qty: 1 on 11/21/2023 by Joshua Gutierrez MD at [facility] Right: Iliac Crest DEPUY SYNTHES 292.61 / / 6.5 X 130 Full Thread Explanted:Qty: 1 on 11/21/2023 by Joshua Gutierrez MD at [facility] Right: Iliac Crest DEPUY SYNTHES 208.482 / / Insurance [place] [facility] [employer] COMP MEDICAL REIMBURSEMENTS OF [facility] Advance Directives * Full Code (Latest Code Status on File) Date Activated Date Inactivated Comments 12/19/2023 6:46 PM * Full Code Date Activated Date Inactivated Comments 11/20/2023 11:14 AM 12/03/2023 8:32 PM Care Teams Wellness Consultant Relationship Specialty Start Date End Date Brad Squires MD [address] [place] [id number] PCP - General FAMILY PRACTICE 11/20/23
--- OUTSIDE RECORDS SUMMARY | 2025-02-26 19:12 | XMS_ITS | Encounter Summary ---
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
[2025-02-26] MEDS: AZITHROMYCIN 250 MG TABLET 1000 MG PO (21:00)
[2025-02-26] MEDS: cefTRIAXone 1 GM in SODIUM CHLORIDE 0.9% IV 50 ML 100 ML IVPB (21:01)
[2025-02-26 21:31] VITALS: BP 120/72; PULSE 83; RESP 16; TEMP 36.9; O2SAT 96
--- NOTE | 2025-03-01 13:15 | PC.NURSE ---
preliminary blood cultures x2 reviewed. no growth detected at this time
--- NOTE | 2025-03-06 13:12 | PC.NURSE ---
blood culture, no growth 5 days
== END 2025-02-26 21:33 | disposition home or self-care (01) ==
PROVIDERS: Emergency Provider Family Medicine
DX: N41.0 Acute prostatitis (principal); N49.0 Inflammatory disorders of seminal vesicle; Z79.899 Other long term (current) drug therapy
CPT/HCPCS: 36415; 74177; 80053; 81003; 83690; 85025; 86140; 87040; 96365; 99284; A9270; J0696; Q9967